=== PATIENT | male | born 1955 | race Caucasian/White ===

== ENCOUNTER 2017-09-09 08:00 | Outpatient (CLI) | payer OTHER ==
[2017-09-09 17:47] LABS: BASOPHILS # (AUTO) 0.1 10^3/uL (0.0-0.1); EOSINOPHILS # (AUTO) 0.2 10^3/uL (0.0-0.7); HGB - HEMOGLOBIN 14.3 g/dL (14.0-18.0); LYMPHOCYTES # (AUTO) 1.2 10^3/uL (1.5-3.5); LYMPHOCYTES % (AUTO) 19.4 %; MEAN CORPUSCULAR HEMOGLOBIN 32.1 pg (27.0-31.0); MEAN CORPUSCULAR HGB CONC 33.4 g/dL (32.0-36.0); MEAN CORPUSCULAR VOLUME 96.2 fL (80.0-94.0); MEAN PLATELET VOLUME 8.6 fL (7.4-11.4); MONOCYTES # (AUTO) 0.6 10^3/uL (0.0-1.0); MONOCYTES % (AUTO) 10.2 %; NEUTROPHILS # (AUTO) 4.1 10^3/uL (1.5-6.6); NEUTROPHILS % (AUTO) 65.4 %; PLT - PLATELET COUNT 238 10^3/uL (130-450); RED BLOOD COUNT 4.46 10^6/uL (4.70-6.10); RED CELL DISTRIBUTION WIDTH 13.3 % (12.0-15.0); WHITE BLOOD COUNT 6.2 x10^3/uL (4.8-10.8)
[2017-09-09 18:40] LABS: ALBUMIN 3.9 g/dL (3.2-5.5); ALBUMIN/GLOBULIN RATIO 1.2 (1.0-2.2); ALKALINE PHOSPHATASE 58 IU/L (42-121); ALT ALANINE AMINOTRANSFERASE 21 IU/L (10-60); AST ASPARTATE AMINOTRANSFERASE 22 IU/L (10-42); BILIRUBIN,TOTAL 0.4 mg/dL (0.2-1.0); BUN - BLOOD UREA NITROGEN 16 mg/dL (6-20); CARBON DIOXIDE - CO2 27 mmol/L (21-32); CHLORIDE 100 mmol/L (101-111); CHOL/HDL RATIO 2.5 (<5.0); CHOLESTEROL 175 mg/dL; CREATININE 0.8 mg/dL (0.6-1.2); GFR - MDRD 99 (>89); GLUCOSE 96 mg/dL (70-100); HDL CHOLESTEROL 69 mg/dL; LDL CHOLESTEROL,CALCULATED 97 mg/dL; LDL/HDL RATIO 1.4 (<3.6); SODIUM 134 mmol/L (135-145); TOTAL PROTEIN 7.2 g/dL (6.7-8.2); VLDL CHOLESTEROL 9 mg/dL
== END 2017-09-09 08:01 | disposition home or self-care (01) ==
LOC: LAB.S 08:00
PROVIDERS: ATTEND Physician Assistant Medical
DX: Z00.00 Encounter for general adult medical examination without abnormal findings (principal); Z12.5 Encounter for screening for malignant neoplasm of prostate
CPT/HCPCS: 36415; 80053; 80061; 84153; 84443; 85025

== ENCOUNTER 2017-10-18 09:32 | Outpatient (CLI) | payer OTHER ==
--- NOTE | 2017-10-18 12:51 | CT Report ---
CT OF CHEST WITHOUT CONTRAST FOR LUNG CANCER SCREENIN10/18/2017 INDICATION: A 62-year-old asymptomatic patient with a [id number] history of smoking, current smoker, for lung cancer screening. TECHNIQUE: Axial CT images of the chest were obtained without contrast, utilizing low dose screening technique. No previous CT is available for comparison. FINDINGS: The heart and great vessels demonstrate minimal atherosclerotic calcification. No hilar or mediastinal lymphadenopathy is present. The lungs demonstrate emphysema. No suspicious pulmonary nodule or mass lesion is seen. Incidental note is made of a tiny calcified granuloma in the posterior right apex. No effusion or pneumothorax is present. Osseous structures demonstrate degenerative changes. Limited evaluation of the upper abdominal structures demonstrates normal adrenal glands. IMPRESSION: EMPHYSEMA. NO SUSPICIOUS PULMONARY NODULE OR MASS LESION. RECOMMENDATION: CONTINUE ANNUAL SCREENING WITH A LOW DOSE CHEST CT IN 12 MONTHS. LUNG RADS CATEGORY 2-BENIGN FINDINGS. In accordance with CT protocol optimization, one or more of the following dose reduction techniques were utilized for this exam: automated exposure control, adjustment of mA and/or KV based on patient size, or use of iterative reconstructive technique. TD: 10/18/2017 12:48
== END 2017-10-18 09:33 | disposition home or self-care (01) ==
LOC: DI 09:32
PROVIDERS: ATTEND Physician Assistant Medical
DX: Z12.2 Encounter for screening for malignant neoplasm of respiratory organs (principal); J43.9 Emphysema, unspecified; F17.210 Nicotine dependence, cigarettes, uncomplicated

== ENCOUNTER 2018-05-28 16:23 | Outpatient (CLI) | payer OTHER ==
--- NOTE | 2018-05-29 10:39 | XRAY Report ---
Reason: DECREASED BS ON RIGHT SIDE Procedure Date: 05/28/2018 Accession Number: [id number] / [id number] Procedure: XR - Chest 2 View X-Ray CPT Code: 46734 FULL RESULT: EXAM: CHEST RADIOGRAPHY EXAM DATE: 05/28/2018 04:39 PM. CLINICAL HISTORY: Decreased breath sounds on right side. COMPARISON: None. TECHNIQUE: 2 views. FINDINGS: Lungs/Pleura: No focal opacities evident. No pleural effusion. No pneumothorax. Normal volumes. Mediastinum: Heart and mediastinal contours are unremarkable. Other: None. IMPRESSION: No acute cardiopulmonary abnormality. RADIA
== END 2018-05-28 16:24 | disposition home or self-care (01) ==
LOC: DI 16:23
PROVIDERS: ATTEND Surgery
DX: J98.8 Other specified respiratory disorders (principal)
CPT/HCPCS: 71046

== ENCOUNTER 2018-11-07 09:32 | Outpatient (CLI) | payer OTHER ==
[2018-11-07 18:08] LABS: BASOPHILS # (AUTO) 0.1 10^3/uL (0.0-0.1); BASOPHILS % (AUTO) 0.9 %; EOSINOPHILS # (AUTO) 0.2 10^3/uL (0.0-0.7); EOSINOPHILS % (AUTO) 3.3 %; LYMPHOCYTES # (AUTO) 1.2 10^3/uL (1.5-3.5); LYMPHOCYTES % (AUTO) 20.6 %; MEAN CORPUSCULAR HEMOGLOBIN 31.1 pg (27.0-31.0); MEAN CORPUSCULAR HGB CONC 33.3 g/dL (32.0-36.0); MEAN CORPUSCULAR VOLUME 93.4 fL (80.0-94.0); MEAN PLATELET VOLUME 8.2 fL (7.4-11.4); MONOCYTES # (AUTO) 0.8 10^3/uL (0.0-1.0); NEUTROPHILS # (AUTO) 3.6 10^3/uL (1.5-6.6); NEUTROPHILS % (AUTO) 62.2 %; PLT - PLATELET COUNT 281 10^3/uL (130-450); RED BLOOD COUNT 4.49 10^6/uL (4.70-6.10); RED CELL DISTRIBUTION WIDTH 13.3 % (12.0-15.0); WHITE BLOOD COUNT 5.8 x10^3/uL (4.8-10.8)
[2018-11-07 18:33] LABS: ALBUMIN/GLOBULIN RATIO 1.1 (1.0-2.2); ALKALINE PHOSPHATASE 61 IU/L (42-121); ALT ALANINE AMINOTRANSFERASE 23 IU/L (10-60); AST ASPARTATE AMINOTRANSFERASE 24 IU/L (10-42); BILIRUBIN,TOTAL 0.8 mg/dL (0.2-1.0); BUN - BLOOD UREA NITROGEN 22 mg/dL (6-20); CARBON DIOXIDE - CO2 23 mmol/L (21-32); CHLORIDE 100 mmol/L (101-111); CHOL/HDL RATIO 2.7 (<5.0); CHOLESTEROL 163 mg/dL; CREATININE 0.9 mg/dL (0.6-1.2); GFR - MDRD 86 (>89); GLUCOSE 92 mg/dL (70-100); HDL CHOLESTEROL 60 mg/dL; LDL CHOLESTEROL,CALCULATED 93 mg/dL; LDL/HDL RATIO 1.6 (<3.6); SODIUM 131 mmol/L (135-145); TOTAL PROTEIN 7.5 g/dL (6.7-8.2); VLDL CHOLESTEROL 10 mg/dL
[2018-11-08 12:51] LABS: HEPATITIS C ANTIBODY NON-REACTIVE (NON-REACTIVE)
== END 2018-11-07 09:33 | disposition home or self-care (01) ==
LOC: LAB.F 09:32
PROVIDERS: ATTEND Physician Assistant Medical
DX: Z00.00 Encounter for general adult medical examination without abnormal findings (principal); E78.5 Hyperlipidemia, unspecified; Z12.5 Encounter for screening for malignant neoplasm of prostate; Z11.59 Encounter for screening for other viral diseases
CPT/HCPCS: 36415; 80053; 80061; 83721; 84153; 84443; 85025; 86803

== ENCOUNTER 2018-12-29 09:58 | Day surgery (SDC) | payer OTHER ==
[2018-12-29] MEDS ORDERED: LACTATED RINGERS 1,000 ML IV ONE (10:26)
[2018-12-29] MEDS ORDERED: MIDAZOLAM 2 MG/2 ML VIAL IVP ONE (10:30)
[2018-12-29] MEDS ORDERED: fentaNYL 250 MCG/5 ML VIAL IVP ONE (10:30)
[2018-12-29] MEDS ORDERED: LIDO GARGLE 30 ML BOTTLE ONE (10:46)
[2018-12-29] MEDS ORDERED: LIDO GARGLE 30 ML BOTTLE TOP ONE (11:24)
[2018-12-29 12:20] VITALS: BP 109/69
== END 2018-12-29 09:59 | disposition home or self-care (01) ==
LOC: SDS 09:58
PROVIDERS: ATTEND Surgery
PROC: 0DB98ZX Excision of Duodenum, Via Natural or Artificial Opening Endoscopic, Diagnostic (ICD-10-PCS; principal; 2018-12-29 11:15)
DX: R49.0 Dysphonia (principal); K21.9 Gastro-esophageal reflux disease without esophagitis; R10.13 Epigastric pain; K20.9 Esophagitis, unspecified; K44.9 Diaphragmatic hernia without obstruction or gangrene; I10 Essential (primary) hypertension; Z79.899 Other long term (current) drug therapy; Z87.891 Personal history of nicotine dependence
CPT/HCPCS: 43239; A9270; J3010; J7120

== ENCOUNTER 2019-04-20 10:09 | Outpatient (CLI) | payer OTHER ==
--- NOTE | 2019-04-20 13:34 | MRI Report ---
Reason: OTHER SPRAIN OF RIGHT SHOULDER JOINT, INITIAL ENCT Procedure Date: 04/20/2019 Accession Number: [id number] / [id number] Procedure: MRI - Shoulder RT W/O CPT Code: FULL RESULT: EXAM: RIGHT SHOULDER MRI WITHOUT CONTRAST EXAM DATE: 04/20/2019 10:41 AM. CLINICAL HISTORY: OTHER SPRAIN OF RIGHT SHOULDER JOINT, INITIAL ENCT. Shoulder pain and limited range of motion. COMPARISON: SHOULDER 2 VIEW RT 01/08/2019 3:00 PM. TECHNIQUE: Multiplanar, multisequence T1-weighted and fluid-sensitive sequences of the shoulder without contrast. Other: None. FINDINGS: Acromioclavicular Region: The acromion is type II. Mild acromioclavicular osteoarthritis. Moderate degenerative osseous changes along the undersurface of the acromion consistent with sequela of chronic subacromial impingement. The coracoacromial and coracoclavicular ligaments are intact. Mild subacromial/subdeltoid bursal fluid consistent with bursitis. Glenohumeral Region: No subluxation. No effusion or loose bodies. The articular cartilage is unremarkable. The glenohumeral ligaments and joint capsule are unremarkable. No significant glenohumeral osteoarthritis. Bone Marrow: No fracture. No bony lesion. Labrum: The labrum is unremarkable on this nonarthrographic study. Musculature/Rotator Cuff: Complete supraspinatus tear with medial retraction of the torn end of the tendon to the apex of the humeral head. No supraspinatus muscle belly atrophy or edema. Moderate infraspinatus tendinosis without focal high-grade tear. No infraspinatus muscle belly atrophy or edema. The teres minor muscle belly and tendon are normal. Tendinosis versus low-grade partial thickness tear along the articular surface of the mid to distal and superior subscapularis. No high-grade subscapularis tear. No subscapularis muscle belly atrophy or edema. Biceps Tendon: Severe tendinosis of the intra-articular portion of the long head biceps tendon. No long head biceps tendon tear. Other: The subcutaneous tissues are unremarkable. IMPRESSION: 1. Complete supraspinatus tear with medial retraction of the torn end of the tendon to the level of the apex of the humeral head. No associated supraspinatus muscle belly atrophy. 2. Tendinosis of the mid to distal infraspinatus without focal tear. 3. Tendinosis versus low-grade partial thickness tear of the mid to distal and superior subscapularis. 4. Severe tendinosis of the intra-articular portion of the long head biceps tendon. No long head biceps tendon tear. 5. Degenerative marrow signal changes along the undersurface of the acromion consistent with sequela of chronic subacromial impingement. RADIA
== END 2019-04-20 10:10 | disposition home or self-care (01) ==
LOC: DI 10:09
PROVIDERS: ATTEND Physician Assistant Medical
DX: S46.011A Strain of muscle(s) and tendon(s) of the rotator cuff of right shoulder, initial encounter (principal); M67.921 Unspecified disorder of synovium and tendon, right upper arm

== ENCOUNTER 2019-05-20 08:00 | Outpatient (CLI) | payer OTHER ==
[2019-05-20 18:30] LABS: BASOPHILS # (AUTO) 0.1 10^3/uL (0.0-0.1); BASOPHILS % (AUTO) 0.8 %; EOSINOPHILS # (AUTO) 0.3 10^3/uL (0.0-0.7); HGB - HEMOGLOBIN 12.7 g/dL (14.0-18.0); LYMPHOCYTES # (AUTO) 1.4 10^3/uL (1.5-3.5); LYMPHOCYTES % (AUTO) 22.7 %; MEAN CORPUSCULAR HEMOGLOBIN 31.1 pg (27.0-31.0); MEAN CORPUSCULAR HGB CONC 32.9 g/dL (32.0-36.0); MEAN CORPUSCULAR VOLUME 94.4 fL (80.0-94.0); MEAN PLATELET VOLUME 10.3 fL (7.4-11.4); MONOCYTES # (AUTO) 0.9 10^3/uL (0.0-1.0); MONOCYTES % (AUTO) 14.3 %; NEUTROPHILS # (AUTO) 3.5 10^3/uL (1.5-6.6); NEUTROPHILS % (AUTO) 56.9 %; PLT - PLATELET COUNT 230 10^3/uL (130-450); RED BLOOD COUNT 4.09 10^6/uL (4.70-6.10); RED CELL DISTRIBUTION WIDTH 13.2 % (12.0-15.0); WHITE BLOOD COUNT 6.2 x10^3/uL (4.8-10.8)
[2019-05-20 18:56] LABS: CALCIUM 9.2 mg/dL (8.5-10.3); CREATININE 1.1 mg/dL (0.6-1.2)
== END 2019-05-20 08:01 | disposition home or self-care (01) ==
LOC: LAB.WCP 08:00
PROVIDERS: ATTEND Physician Assistant Medical
DX: I10 Essential (primary) hypertension (principal)
CPT/HCPCS: 36415; 80048; 85025

== ENCOUNTER 2019-05-27 06:12 | Day surgery (SDC) | payer OTHER ==
[2019-05-27] MEDS ORDERED: ROCURONIUM 50 MG/5 ML VIAL IVP ONE (06:13)
[2019-05-27] MEDS ORDERED: NEOSTIGMINE 0.5 MG/1 ML 10 ML MDV IVP ONE (06:13)
[2019-05-27] MEDS ORDERED: fentaNYL 100 MCG/2 ML VIAL IVP ONE (06:13)
[2019-05-27] MEDS ORDERED: DEXAMETHASONE 4 MG/ML VIAL IVP ONE (06:13)
[2019-05-27] MEDS ORDERED: GLYCOPYRROLATE 1 MG/5 ML VIAL IVP ONE (06:13)
[2019-05-27] MEDS ORDERED: KETOROLAC 30 MG/ML VIAL IVP ONE (06:13)
[2019-05-27] MEDS ORDERED: PROPOFOL 200 MG/20 ML VIAL IVP ONE (06:13)
[2019-05-27] MEDS ORDERED: MIDAZOLAM 2 MG/2 ML VIAL IVP ONE (06:13)
[2019-05-27] MEDS ORDERED: CEFAZOLIN SODIUM IN 0.9 % NACL 2 GM/100 ML BAG IV ONE (06:38)
[2019-05-27] MEDS ORDERED: LACTATED RINGERS 1,000 ML IV ONE ×2 (06:44→10:16)
--- NOTE | 2019-05-27 07:17 | ANESTHESIA ---
Pre-Anesthesia VS, & Labs - Diagnosis right rotator cuff tear, subacromial impingement - Procedure right shoulder arthroscopy, rotator cuff repair, subacromial decompression Vital Signs: Temp Pulse Resp BP Pulse Ox 37.4 C 62 16 144/91 H 99 05/27/19 06:46 05/27/19 06:46 05/27/19 06:46 05/27/19 06:46 05/27/19 06:46 Height 5 ft 11.5 in Weight (kg) 91.6 kg - NPO >8 hours Home Medications and Allergies Home Medications: Ambulatory Orders Omeprazole 20 mg PO DAILY 05/27/19 Atenolol 50 mg PO DAILY 12/29/18 Lisinopril 10 mg PO DAILY 12/29/18 Simvastatin 40 mg PO DAILY 12/29/18 Omeprazole 20 mg PO DAILY 05/27/19 Allergies/Adverse Reactions: Allergies Allergy/AdvReac Type Severity Reaction Status Date / Time No Known Drug Allergies Allergy Verified 12/29/18 10:27 Anes History & Medical History - Anesthetic History Anesthesia Complications: reports: No previous complications - Medical History Cardiovascular: reports: Hypertension, High cholesterol Pulmonary: reports: Emphysema Gastrointestinal: reports: GERD, Hiatal hernia Urinary: reports: None Musculoskeletal: reports: None Endocrine/Autoimmune: reports: None Skin: reports: None - Surgical History General: Colonoscopy Eyes Ears Nose Throat (EENT): Tonsil/Adenoidectomy Exam General: Alert Dental: WNL Mouth Opening: Greater than 4 Fingerbreadths Mallampati classification: II Respiratory: Lungs clear Cardiovascular: Regular rate, Normal S1, Normal S2 Plan Anesthesia Type: General, Supraclavicular Block Consent for Procedure(s) Verified and Reviewed: Yes Code Status: Attempt Resuscitation ASA classification: 2-Mild systemic disease Is this case an emergency?: No
[2019-05-27] MEDS ORDERED: BUPIVACAINE 0.25% PF 10 ML VIAL ONE (07:19)
[2019-05-27] MEDS ORDERED: EPINEPHrine 1 MG/ML AMP ONE (07:19)
[2019-05-27] MEDS ORDERED: BUPIVACAINE 0.25% PF 30 ML VIAL SUBQ ONE ×2 (08:40)
[2019-05-27] MEDS ORDERED: EPINEPHrine 1 MG/ML AMP IR ONE (08:41)
[2019-05-27] MEDS ORDERED: oxyCODONE 5 MG TABLET PO PRN (10:11)
[2019-05-27] MEDS ORDERED: ONDANSETRON 4 MG/2 ML VIAL IVP PRN (10:11)
--- NOTE | 2019-05-27 10:17 | IMMEDIATE POSTOPERATIVE NOTE ---
Immediate Postoperative Note - Procedure Note Procedure Date: 05/27/19 Pre-Op Diagnosis: Right rotator cuff tear subacromial impingement Procedure: Arthroscopic rotator cuff repair and subacromial decompression right Post-Op Diagnosis: Same Raisin Washer: And a Anesthesia Type: General ET tube, Local, Regional block Findings: As above Complications: No complications Estimated Blood Loss (in cc): 50 Plan of Care: Patient tolerated procedure well instrument and sponge counts correct patient transferred to recovery room in stable condition Patient will follow standard right shoulder postoperative protocol rotator cuff repair
--- NOTE | 2019-05-27 11:10 | OPERATIVE REPORT ---
DATE OF SERVICE: 05/27/2019 Physician: Terrell Altman MD PREOPERATIVE DIAGNOSES 1. Right shoulder rotator cuff tear, supraspinatus. 2. Right shoulder subacromial impingement. POSTOPERATIVE DIAGNOSES 1. Right shoulder rotator cuff tear supraspinatus. 2. Right shoulder subacromial impingement. PROCEDURE PERFORMED 1. Right shoulder arthroscopic rotator cuff repair, supraspinatus. 1. Right shoulder arthroscopic subacromial decompression conversion to type 1 acromion. SURGEON: Terrell Altman MD SALON LEADER: None. ANESTHESIA PROVIDERS: Annalee Al CRNA, and Nate Perez CRNA. ANESTHESIA TYPE: Right side ultrasound-guided block of shoulder, as well general endotracheal anesthesia, as well as 15 mL of 0.25% plain Marcaine local. INTRAOPERATIVE COMPLICATIONS: None noted. ESTIMATED BLOOD LOSS: Less than 50 mL FLUIDS: 1000 mL lactated Ringer's. COMPRESSION DEVICE: Bilateral calf SCD boots. PREOPERATIVE ANTIBIOTICS: Weight-based IV Ancef. ORTHOPEDIC IMPLANTS: Arthrex 5.5 BioComposite triple-loaded anchors x2. HISTORY OF PRESENT ILLNESS AND INDICATIONS: The patient is a 64-year-old gentleman found to have a full-thickness rotator cuff tear. He is symptomatic, indicated for operative treatment. Please see previous clinic discussion for risks, benefits, and alternatives of operative and nonoperative treatment that were reviewed. These were again highlighted with the patient and the patient's in the preoperative care unit. Their questions were answered. Patient verbalized understanding of the above and verbalized wish to proceed with operative treatment. Informed consent was given. PROCEDURE: On 05/27/2019, patient is identified in the preoperative care unit. He identifies his right shoulder as the operative site; this is signed by the operating surgeon on the right shoulder. Patient is brought to the operating room, initially placed supine, general anesthesia is administered, and then he is placed left side down, lateral decubitus position with appropriately placed axillary roll to avoid encumbrance of the axilla. Head, neck, and extremities are placed in comfortable positions to avoid peripheral nerve stretch and compression. Down leg is gel padded. Beanbag positioner is used. Patient's right upper extremity is first pre-scrubbed with Hibiclens solution, then alcohol, and then prepped and draped in the usual sterile fashion using ChloraPrep. A combination of 10 or 15 pounds of traction is used during the case in the right upper extremity arm kearney. At this time, surgical pause identifies the right shoulder as the operative site. Local anesthetic infused posteriorly, anteriorly, and laterally, and a small incision made posteriorly. Scope is introduced into the glenohumeral joint. Diagnostic arthroscopy is carried out. There is noted to be some chondromalacia grade 1-2, minimal fraying of the labrum, biceps okay, and a full-thickness supraspinatus tear of the rotator cuff, okay. At this point, attention is directed to the subacromial space, where the camera is redirected. A lateral incision is made. Shaver is brought through the lateral incision. Subacromial decompression, debriding fibrotic scar tissue and bursal tissue is performed. The coracoacromial ligament is elevated, and then a bur is used to convert to type 1 acromion with the acromioplasty. At this point, hemostasis is achieved using electrocautery with appropriate flow, and at this point, the edge of the rotator cuff is debrided sharply using a meniscal basket. The footprint is debrided using a shaver and a bur to freshly bleeding bone but leaving good integrity of the cortex. At this point, copious irrigation is performed, and then, through an anterolateral auxiliary incision, sequential anchors are placed, 1 anterior and 1 posterior in the rotator cuff footprint, followed by placement of 5 simple sutures and the posterior-most horizontal mattress suture and tied in reverse order, thereby re-apposing the rotator cuff to the footprint, and this is tested and noted to be stable. Suture limbs are cut. The rotator cuff is examined and noted to be well apposed to its near-anatomic footprint and no indication for further procedure. Subacromial space is copiously irrigated and hemostasis achieved. Instruments are removed. Incisions are closed with interrupted nylon suture. Local anesthetic is infused around the remaining incisions, and then skin is washed, dried, Xeroform dressing applied, dry sterile dressing is applied, and then micropore tape and ABD pad applied. Patient is placed in abduction pillow sling. Patient tolerated the procedure well. Instrument and sponge counts are correct. Patient is transferred to recovery room in stable condition; will follow standard right shoulder rotator cuff protocol. Patient's is found in the waiting room, case is discussed, arthroscopic photos reviewed. Case is explained, questions are answered. Perioperative medication plan reviewed; they deny any contraindications to this. Protocol for rotator cuff repair and precautions highlighted. She verbalizes understanding and satisfaction with plan and will follow up in 10-14 days, or sooner should problems or questions arise. TD: 05/27/2019 10:29 SONJA
[2019-05-27 11:11] VITALS: BP 128/84
== END 2019-05-27 06:13 | disposition home or self-care (01) ==
LOC: SDS 06:12
PROVIDERS: ATTEND Orthopaedic Surgery Sports Medicine
PROC: 0RNJ4ZZ Release Right Shoulder Joint, Percutaneous Endoscopic Approach (ICD-10-PCS; 2019-05-27)
PROC: 0LQ14ZZ Repair Right Shoulder Tendon, Percutaneous Endoscopic Approach (ICD-10-PCS; principal; 2019-05-27 07:30)
DX: S43.421A Sprain of right rotator cuff capsule, initial encounter (principal); M75.41 Impingement syndrome of right shoulder; I10 Essential (primary) hypertension; E78.00 Pure hypercholesterolemia, unspecified; J43.9 Emphysema, unspecified; K21.9 Gastro-esophageal reflux disease without esophagitis; K44.9 Diaphragmatic hernia without obstruction or gangrene; W17.89XA Other fall from one level to another, initial encounter; Y93.89 Activity, other specified; Y92.62 Dock or shipyard as the place of occurrence of the external cause; Y99.0 Civilian activity done for income or pay
CPT/HCPCS: 29826; 29827; A9270; C1713; J0690; J7120

== ENCOUNTER 2019-06-18 13:54 | Outpatient (CLI) | payer OTHER ==
[2019-06-18 18:42] LABS: BASOPHILS % (AUTO) 0.7 %; EOSINOPHILS # (AUTO) 0.3 10^3/uL (0.0-0.7); EOSINOPHILS % (AUTO) 4.8 %; HGB - HEMOGLOBIN 13.5 g/dL (14.0-18.0); LYMPHOCYTES # (AUTO) 1.3 10^3/uL (1.5-3.5); LYMPHOCYTES % (AUTO) 21.6 %; MEAN CORPUSCULAR HEMOGLOBIN 31.3 pg (27.0-31.0); MEAN CORPUSCULAR HGB CONC 32.9 g/dL (32.0-36.0); MEAN CORPUSCULAR VOLUME 94.9 fL (80.0-94.0); MONOCYTES # (AUTO) 0.9 10^3/uL (0.0-1.0); MONOCYTES % (AUTO) 14.9 %; NEUTROPHILS # (AUTO) 3.3 10^3/uL (1.5-6.6); NEUTROPHILS % (AUTO) 57.3 %; PLT - PLATELET COUNT 281 10^3/uL (130-450); RED BLOOD COUNT 4.32 10^6/uL (4.70-6.10); RED CELL DISTRIBUTION WIDTH 12.6 % (12.0-15.0); WHITE BLOOD COUNT 5.8 x10^3/uL (4.8-10.8)
[2019-06-18 18:55] LABS: % IRON SATURATION 34 % (20-50); IRON 109 ug/dL (45-182); TOTAL IRON BINDING CAPACITY 321 ug/dL (250-450); TRANSFERRIN 229 mg/dL (180-329)
[2019-06-18 19:06] LABS: FERRITIN 253.4 ng/mL (23.9-336.2)
[2019-06-18 19:10] LABS: FOLATE 12.23 ng/mL (5.90 - >24.8)
== END 2019-06-18 23:59 | disposition home or self-care (01) ==
LOC: LAB.WCP 13:54
PROVIDERS: ATTEND Physician Assistant Medical
DX: D64.9 Anemia, unspecified (principal)
CPT/HCPCS: 36415; 82607; 82728; 82746; 83540; 84466; 85025

== ENCOUNTER 2020-02-15 08:24 | Outpatient (CLI) | payer OTHER ==
[2020-02-15 15:35] LABS: BASOPHILS # (AUTO) 0.1 10^3/uL (0.0-0.1); BASOPHILS % (AUTO) 0.8 %; EOSINOPHILS # (AUTO) 0.2 10^3/uL (0.0-0.7); EOSINOPHILS % (AUTO) 3.2 %; HGB - HEMOGLOBIN 13.8 g/dL (14.0-18.0); LYMPHOCYTES # (AUTO) 1.5 10^3/uL (1.5-3.5); LYMPHOCYTES % (AUTO) 23.7 %; MEAN CORPUSCULAR HEMOGLOBIN 30.6 pg (27.0-31.0); MEAN CORPUSCULAR VOLUME 95.6 fL (80.0-94.0); MEAN PLATELET VOLUME 10.3 fL (7.4-11.4); MONOCYTES # (AUTO) 0.7 10^3/uL (0.0-1.0); MONOCYTES % (AUTO) 10.5 %; NEUTROPHILS # (AUTO) 3.9 10^3/uL (1.5-6.6); NEUTROPHILS % (AUTO) 61.5 %; PLT - PLATELET COUNT 267 10^3/uL (130-450); RED BLOOD COUNT 4.51 10^6/uL (4.70-6.10); RED CELL DISTRIBUTION WIDTH 12.8 % (12.0-15.0); WHITE BLOOD COUNT 6.3 x10^3/uL (4.8-10.8)
[2020-02-15 16:12] LABS: ALBUMIN 4.2 g/dL (3.2-5.5); ALBUMIN/GLOBULIN RATIO 1.3 (1.0-2.2); ALKALINE PHOSPHATASE 64 IU/L (42-121); ALT ALANINE AMINOTRANSFERASE 32 IU/L (10-60); AST ASPARTATE AMINOTRANSFERASE 23 IU/L (10-42); BILIRUBIN,TOTAL 0.5 mg/dL (0.2-1.0); BUN - BLOOD UREA NITROGEN 21 mg/dL (6-20); CALCIUM 9.4 mg/dL (8.5-10.3); CARBON DIOXIDE - CO2 27 mmol/L (21-32); CHLORIDE 101 mmol/L (101-111); CHOL/HDL RATIO 3.5 (<5.0); CHOLESTEROL 213 mg/dL; GLUCOSE 107 mg/dL (70-100); HDL CHOLESTEROL 61 mg/dL; LDL CHOLESTEROL,CALCULATED 133 mg/dL; LDL/HDL RATIO 2.2 (<3.6); SODIUM 137 mmol/L (135-145); TOTAL PROTEIN 7.5 g/dL (6.7-8.2); VLDL CHOLESTEROL 19 mg/dL
== END 2020-02-15 08:25 | disposition home or self-care (01) ==
LOC: LAB.S 08:24
PROVIDERS: ATTEND Physician Assistant Medical
DX: Z00.00 Encounter for general adult medical examination without abnormal findings (principal); E78.5 Hyperlipidemia, unspecified; Z12.5 Encounter for screening for malignant neoplasm of prostate; D64.9 Anemia, unspecified
CPT/HCPCS: 36415; 80053; 80061; 83721; 84153; 84443; 85025

== ENCOUNTER 2020-07-18 08:50 | Outpatient (CLI) | payer OTHER | END 2020-07-18 08:51 | disposition home or self-care (01) | LOC: COV 08:50 | PROVIDERS: ATTEND Family Medicine | DX: R50.9 Fever, unspecified (principal); R05 Cough; M79.10 Myalgia, unspecified site; R53.83 Other fatigue; J02.9 Acute pharyngitis, unspecified; R11.2 Nausea with vomiting, unspecified; Z20.828 Contact with and (suspected) exposure to other viral communicable diseases ==

== ENCOUNTER 2021-06-02 10:11 | Outpatient (CLI) | payer OTHER ==
[2021-06-02 18:08] LABS: BASOPHILS % (AUTO) 0.9 %; EOSINOPHILS # (AUTO) 0.2 10^3/uL (0.0-0.7); EOSINOPHILS % (AUTO) 3.9 %; HCT - HEMATOCRIT 42.7 % (42.0-52.0); HGB - HEMOGLOBIN 13.7 g/dL (14.0-18.0); LYMPHOCYTES # (AUTO) 1.3 10^3/uL (1.5-3.5); LYMPHOCYTES % (AUTO) 26.9 %; MEAN CORPUSCULAR HEMOGLOBIN 31.5 pg (27.0-31.0); MEAN CORPUSCULAR HGB CONC 32.1 g/dL (32.0-36.0); MEAN CORPUSCULAR VOLUME 98.2 fL (80.0-94.0); MEAN PLATELET VOLUME 10.4 fL (7.4-11.4); MONOCYTES # (AUTO) 0.6 10^3/uL (0.0-1.0); NEUTROPHILS # (AUTO) 2.6 10^3/uL (1.5-6.6); NEUTROPHILS % (AUTO) 55.9 %; PLT - PLATELET COUNT 238 10^3/uL (130-450); RED BLOOD COUNT 4.35 10^6/uL (4.70-6.10); RED CELL DISTRIBUTION WIDTH 12.9 % (12.0-15.0); WHITE BLOOD COUNT 4.7 x10^3/uL (4.8-10.8)
[2021-06-02 18:54] LABS: THYROID STIMULATING HORMONE 2.05 uIU/mL (0.34-5.60)
[2021-06-02 19:00] LABS: ALBUMIN 4.3 g/dL (3.2-5.5); ALBUMIN/GLOBULIN RATIO 1.3 (1.0-2.2); ALKALINE PHOSPHATASE 57 IU/L (42-121); ALT ALANINE AMINOTRANSFERASE 33 IU/L (10-60); AST ASPARTATE AMINOTRANSFERASE 26 IU/L (10-42); BILIRUBIN,TOTAL 0.7 mg/dL (0.2-1.0); BUN - BLOOD UREA NITROGEN 24 mg/dL (6-20); CALCIUM 9.6 mg/dL (8.5-10.3); CARBON DIOXIDE - CO2 28 mmol/L (21-32); CHLORIDE 101 mmol/L (101-111); CHOL/HDL RATIO 3.1 (<5.0); CHOLESTEROL 219 mg/dL; CREATININE 1.3 mg/dL (0.6-1.2); GFR - MDRD 56 (>89); GLUCOSE 98 mg/dL (70-100); HDL CHOLESTEROL 70 mg/dL; LDL CHOLESTEROL,CALCULATED 133 mg/dL; LDL/HDL RATIO 1.9 (<3.6); SODIUM 138 mmol/L (135-145); TOTAL PROTEIN 7.6 g/dL (6.7-8.2); TRIGLYCERIDES 78 mg/dL; VLDL CHOLESTEROL 16 mg/dL
== END 2021-06-02 23:59 | disposition home or self-care (01) ==
LOC: LAB.WCP 10:11
PROVIDERS: ATTEND Physician Assistant Medical
DX: Z00.00 Encounter for general adult medical examination without abnormal findings (principal); E78.5 Hyperlipidemia, unspecified; Z12.5 Encounter for screening for malignant neoplasm of prostate; K21.9 Gastro-esophageal reflux disease without esophagitis
CPT/HCPCS: 36415; 80053; 80061; 83721; 84153; 84443; 85025

== ENCOUNTER 2021-08-05 14:09 | Outpatient (CLI) | payer OTHER ==
[2021-08-05 18:26] LABS: CALCIUM 9.3 mg/dL (8.5-10.3); CREATININE 1.3 mg/dL (0.6-1.2)
== END 2021-08-05 14:10 | disposition home or self-care (01) ==
LOC: LAB.S 14:09
PROVIDERS: ATTEND Physician Assistant Medical
DX: Z00.00 Encounter for general adult medical examination without abnormal findings (principal); E78.5 Hyperlipidemia, unspecified; Z12.5 Encounter for screening for malignant neoplasm of prostate; D64.9 Anemia, unspecified; N18.9 Chronic kidney disease, unspecified
CPT/HCPCS: 36415; 80048

== ENCOUNTER 2021-09-11 11:10 | Emergency (ER) | payer OTHER ==
[2021-09-11 11:32] LABS: BASOPHILS % (AUTO) 0.5 %; EOSINOPHILS # (AUTO) 0.2 10^3/uL (0.0-0.7); EOSINOPHILS % (AUTO) 1.9 %; HCT - HEMATOCRIT 42.5 % (42.0-52.0); HGB - HEMOGLOBIN 14.4 g/dL (14.0-18.0); LYMPHOCYTES # (AUTO) 1.6 10^3/uL (1.5-3.5); LYMPHOCYTES % (AUTO) 18.4 %; MEAN CORPUSCULAR HEMOGLOBIN 31.9 pg (27.0-31.0); MEAN CORPUSCULAR HGB CONC 33.9 g/dL (32.0-36.0); MEAN CORPUSCULAR VOLUME 94.2 fL (80.0-94.0); MEAN PLATELET VOLUME 9.4 fL (7.4-11.4); MONOCYTES # (AUTO) 1.3 10^3/uL (0.0-1.0); MONOCYTES % (AUTO) 15.2 %; NEUTROPHILS # (AUTO) 5.5 10^3/uL (1.5-6.6); NEUTROPHILS % (AUTO) 63.5 %; PLT - PLATELET COUNT 240 10^3/uL (130-450); RED BLOOD COUNT 4.51 10^6/uL (4.70-6.10); RED CELL DISTRIBUTION WIDTH 12.6 % (12.0-15.0); WHITE BLOOD COUNT 8.6 x10^3/uL (4.8-10.8)
--- NOTE | 2021-09-11 11:44 | ED Physician Documentation ---
PD HPI CHEST PAIN - Stated complaint Stated Complaint: CHEST PX - Chief complaint Chief Complaint: Cardiac - History obtained from History obtained from: Patient - History of Present Illness Timing - onset: Yesterday (299) Timing - onset during: Rest Timing - duration: Days (1) Timing - details: Abrupt onset, Still present Quality: Sharp, Pain Location: Substernal, Right chest Improved by: Rest Worsened by: Inspiration Associated symptoms: No: Shortness of air, Diaphoresis, Nausea, Vomiting, Feeling faint / dizzy, General Weakness, Palpitations, Cough Similar symptoms before: Has not had sx before Recently seen: Clinic - Additional information Additional information: 66-year-old male reports that he woke up about 3:00 in the morning had a sharp cramping pain in his right leg and following that he developed some pain in his right chest. He states that the pain is worse with inspiration and has persi sted this morning so he went into the urgent care and was directed to the emergency department. He states that he has had surgery to his right hand for a Dupuytren's contracture about 5 days ago. He had no problems with that. He periodically will have cramps in his legs and does not have pain in his legs now. He has no swelling in his legs. He denies any shortness of breath associated with this incident. Review of Systems Constitutional: denies: Fever Eyes: denies: Decreased vision Ears: denies: Ear pain Nose: denies: Congestion Throat: denies: Sore throat Cardiac: reports: Chest pain / pressure, Calf pain. denies: Palpitations, Pedal edema Respiratory: denies: Dyspnea, Cough, Wheezing GI: denies: Abdominal Pain, Nausea, Vomiting, Constipation, Diarrhea : denies: Dysuria, Frequency PD PAST MEDICAL HISTORY - Past Medical History Cardiovascular: Hypertension, High cholesterol Respiratory: Emphysema Endocrine/Autoimmune: None GI: GERD, Hiatal hernia : None HEENT: Chronic vision loss Musculoskeletal: None Derm: None - Past Surgical History General: Colonoscopy HEENT: Tonsil/Adenoidectomy - Present Medications Home Medications: Ambulatory Orders Medication Instructions Recorded Confirmed Simvastatin 40 mg PO DAILY 12/29/18 05/27/19 atenoloL [Atenolol] 50 mg PO DAILY 12/29/18 05/27/19 lisinopriL [Lisinopril] 10 mg PO DAILY 12/29/18 05/27/19 Omeprazole 20 mg PO DAILY 05/27/19 05/27/19 - Allergies Allergies/Adverse Reactions: Allergies Allergy/AdvReac Type Severity Reaction Status Date / Time No Known Drug Allergies Allergy Verified 09/11/21 11:18 PD ED PE NORMAL - Vitals Vital signs reviewed: Yes (Hypertensive) - General General: Alert and oriented X 3, No acute distress, Well developed/nourished - HEENT HEENT: Atraumatic, PERRL, EOMI - Neck Neck: Supple, no meningeal sign, No bony TTP - Cardiac Cardiac: RRR, No murmur - Respiratory Respiratory: No respiratory distress, Clear bilaterally - Abdomen Abdomen: Normal bowel sounds, Soft, Non tender, Non distended, No organomegaly - Back Back: No CVA TTP, No spinal TTP - Derm Derm: Normal color, Warm and dry, No rash - Extremities Extremities: No deformity, No edema - Neuro Neuro: Alert and oriented X 3, billet driller 2-12 intact, No motor deficit, No sensory deficit, Normal speech Eye Opening: Spontaneous Motor: Obeys Commands Verbal: Oriented GCS Score: 15 - Psych Psych: Normal mood, Normal affect Results - Vitals Vitals: Vital Signs - 24 hr 09/11/21 09/11/21 09/11/21 11:18 12:17 14:06 Temperature 36.9 C Heart Rate 90 84 68 Respiratory 24 19 16 Rate Blood Pressure 165/90 H 107/65 110/68 O2 Saturation 99 100 100 Oxygen O2 Source Room air - EKG (time done) 1116 Rate: Rate (enter#) (78) Rhythm: NSR Intervals: RBBB (incomplete) Ischemia: ST elevation c/w ischemia (borderline (<.06mV)) Compare to prior EKG: Old EKG unavailable Computer interpretation: Agree with computer - Labs Labs: Laboratory Tests 09/11/21 09/11/21 09/11/21 11:26 11:26 11:26 WBC 8.6 RBC 4.51 L Hgb 14.4 Hct 42.5 MCV 94.2 H MCH 31.9 H MCHC 33.9 RDW 12.6 Plt Count 240 MPV 9.4 Neut # (Auto) 5.5 Lymph # (Auto) 1.6 [place] # (Auto) 1.3 H Eos # (Auto) 0.2 Baso # (Auto) 0.0 Absolute Nucleated RBC 0.00 Nucleated RBC % 0.0 Sodium 134 L Potassium 4.1 Chloride 95 L Carbon Dioxide 27 Anion Gap 12.0 BUN 21 H Creatinine 1.0 Estimated GFR (MDRD) 75 L Glucose 102 H Calcium 9.5 Total Bilirubin 0.8 AST 20 ALT 28 Alkaline Phosphatase 68 Troponin I High Sens 7.1 Total Protein 8.2 Albumin 4.0 Globulin 4.2 Albumin/Globulin Ratio 1.0 Lipase 31 - Rads (name of study) CTA chest Radiology: Prelim report reviewed (Impression: 1. No pulmonary embolus. No lung consolidation or pleural effusions.), EMP read indepedently, See rad report chest 1 v Radiology: Prelim report reviewed (Impression: 1. No acute cardiopulmonary abnormality.), EMP read indepedently, See rad report PD MEDICAL DECISION MAKING - ED course Complexity details: reviewed old records, reviewed results, re-evaluated patient, considered differential, d/w patient ED course: 66-year-old male with acute pleuritic chest pain after a sharp pain in his calf does not have it evidence of PE on CTA of the chest. We did not have other reasons for the patient's pleuritic chest pain discovered on today's evaluation. His symptoms resolved while he was here in the emergency department. Departure - Departure Disposition: 01 Home, Self Care Clinical Impression: Atypical chest pain Condition: Stable Instructions: ED Chest Pain Atypical Unkn Cause Follow-Up: Tammi Fields PA-C [Primary Care Provider] - Comments: Patrick, today we did not find a specific reason for the pleuritic chest pain you were having. There is no evidence of a collapsed lung, pneumonia or pulmonary embolism. There is no evidence of heart attack or vessel rupture/dissection. The expectation is recovery without symptoms. Discharge Date/Time: 09/11/21 14:08
--- NOTE | 2021-09-11 11:48 | XRAY Report ---
PROCEDURE: Chest 1 View X-Ray INDICATIONS: Chest pain TECHNIQUE: One view of the chest was acquired. COMPARISON: May 28, 2018 FINDINGS: SUPPORT DEVICES: None. LUNGS/PLEURA: No focal consolidation, pleural effusion or space-occupying pneumothorax. MEDIASTINUM: The cardiomediastinal silhouette is within normal limits. BONES/SOFT TISSUES: No acute abnormality. IMPRESSION: 1.No acute cardiopulmonary abnormality. Reviewed by: Bill Gutierrez MD on 09/11/2021 11:47 AM [facility] Approved by: Bill Gutierrez MD on 09/11/2021 11:47 AM [facility] Station ID: [id number]
[2021-09-11 11:49] LABS: BILIRUBIN,TOTAL 0.8 mg/dL (0.2-1.0); CALCIUM 9.5 mg/dL (8.5-10.3); POTASSIUM 4.1 mmol/L (3.5-5.0); TOTAL PROTEIN 8.2 g/dL (6.7-8.2)
[2021-09-11] MEDS ORDERED: iohexoL-300 100 ML VIAL ONE (12:57)
[2021-09-11] MEDS ORDERED: iohexoL-300 100 ML VIAL IVP ONE (13:17)
--- NOTE | 2021-09-11 13:24 | CT Report ---
PROCEDURE: ANGIO CHEST W/WO INDICATIONS: pleuritic chest pain CONTRAST: IV CONTRAST: Optiray 320 ml: 80 PO CONTRAST: *NO PO CONTRAST TECHNIQUE: After the administration of intravenous contrast, 2 mm axial images were acquired from the pulmonary apices to the posterior costophrenic angles during the arterial phase. In addition, 1 mm lung kernel and 5 mm soft tissue kernel reconstructions were performed. 3-dimensional coronal oblique maximum int ensity projection (MIP) reformats, 8 mm axial MIP, and 5 mm coronal and sagittal MPR reformats were t hen performed through the thorax. For radiation dose reduction, the following was used: automated exp osure control, adjustment of mA and/or kV according to patient size. COMPARISON: CT chest 10/18/2017. FINDINGS: Image quality: Excellent. Pulmonary arteries: Pulmonary arteries are normal in size, and demonstrate no intraluminal filling d efects to suggest central pulmonary embolism. Lungs and pleura: Lungs are clear. No pleural effusions or pneumothorax. Central and peripheral ai rways are patent. Mediastinum: Heart size is normal, without pericardial effusion. Atherosclerotic calcifications note d in the aorta, great vessels and coronary vasculature. No mediastinal or hilar adenopathy. Thoraci c aorta is normal in caliber and enhancement. Esophagus is normal in caliber, without hiatal hernia. Bones and chest wall: No suspicious bony lesions. Ribs and thoracic spine appear intact throughout. Spine degenerative disc disease and facet arthropathy are noted. No axillary or supraclavicular codie nopathy. The thyroid is normal in size and there are no incidental findings. Abdomen: Visualized upper abdominal solid organs appear normal in the early arterial phase of enhanc ement. IMPRESSION: 1. No pulmonary embolus. 2. No lung consolidation or pleural effusions. Reviewed by: Radha Canela MD, PhD on 09/11/2021 12:23 PM [facility] Approved by: Radha Canela MD, PhD on 09/11/2021 12:23 PM [facility] Station ID: [id number]
[2021-09-11 14:07] VITALS: BP 110/68
== END 2021-09-11 14:08 | disposition home or self-care (01) ==
LOC: ED 11:10
DX: R07.89 Other chest pain (principal); I10 Essential (primary) hypertension
CPT/HCPCS: 36415; 71045; 71275; 80053; 83690; 84484; 85025; 93005; 99284; Q9967

== ENCOUNTER 2021-11-12 08:00 | Outpatient (CLI) | payer OTHER | END 2021-11-12 23:59 | disposition home or self-care (01) | LOC: LAB.R 08:00 | PROVIDERS: ATTEND Emergency Medicine | DX: L72.3 Sebaceous cyst (principal) | CPT/HCPCS: 87070; 87205 ==

== ENCOUNTER 2021-12-18 06:28 | Day surgery (SDC) | payer OTHER ==
[2021-12-18] MEDS ORDERED: LACTATED RINGERS 1,000 ML IV ONE (06:33)
--- NOTE | 2021-12-18 07:06 | ANESTHESIA ---
Pre-Anesthesia VS, & Labs - Diagnosis hx of lee's, screening - Procedure EGD, Colonoscopy Vital Signs: Temp Pulse Resp BP Pulse Ox 36.1 C L 79 14 134/87 H 99 12/18/21 06:33 12/18/21 06:33 12/18/21 06:33 12/18/21 06:33 12/18/21 06:33 Height: 5 ft 11 in Weight (kg): 97.8 kg Body Mass Index: 30.0 BMI Classification: Obese - NPO >8 hours - Lab Results Lab results reviewed: Yes Home Medications and Allergies Simvastatin 40 mg PO DAILY 12/29/18 atenoloL [Atenolol] 50 mg PO DAILY 12/29/18 lisinopriL [Lisinopril] 10 mg PO DAILY 12/29/18 Omeprazole 20 mg PO DAILY 05/27/19 Allergies/Adverse Reactions: Allergies Allergy/AdvReac Type Severity Reaction Status Date / Time No Known Drug Allergies Allergy Verified 09/11/21 11:18 Anes History & Medical History - Anesthetic History Anesthesia Complications: reports: No previous complications Family history of Anesthesia Complications: Denies Family history of Malignant Hyperthermia: Denies - Medical History Cardiovascular: reports: Hypertension, High cholesterol Pulmonary: reports: Emphysema (was told about it 4 years ago when he quit smoking) Gastrointestinal: reports: GERD, Hiatal hernia Urinary: reports: None Musculoskeletal: reports: None Endocrine/Autoimmune: reports: None Skin: reports: None Smoking Status: Never smoker - Surgical History General: reports: Colonoscopy Eyes Ears Nose Throat (EENT): reports: Tonsil/Adenoidectomy Orthopedic: reports: Rotator cuff repair Exam General: Alert, Oriented x3, Cooperative, No acute distress Dental: WNL Mouth Openin Fingerbreadth Neck Mobility: Normal Mallampati classification: II Respiratory: Lungs clear, Normal breath sounds, No respiratory distress, No accessory muscle use Cardiovascular: Regular rate, Normal S1, Normal S2, No murmurs Plan Anesthesia Type: General Consent for Procedure(s) Verified and Reviewed: Yes Code Status: Attempt Resuscitation ASA classification: 2-Mild systemic disease Is this case an emergency?: No
[2021-12-18] MEDS ORDERED: PROPOFOL 500 MG/50 ML 500 MG/50 ML VIAL ONE ×2 (07:32→08:32)
[2021-12-18] MEDS ORDERED: LACTATED RINGERS 300 ML IV ONE (08:54)
[2021-12-18 09:24] VITALS: BP 99/65
--- NOTE | 2021-12-18 13:44 | ANESTHESIA POST OP EVALUATION ---
Anesthesia Post Eval - Post Anesthesia Eval Vitals: Last Vital Signs Temp 36.2 C L 12/18/21 09:11 Pulse 76 12/18/21 09:11 Resp 16 12/18/21 09:11 BP 99/65 12/18/21 09:11 Pulse Ox 97 12/18/21 09:11 CV Function Including HR & BP: Stable Pain Control: Satisfactory Nausea & Vomiting: Negative Mental Status: Baseline Respiratory Status: Airway Patent Hydration Status: Satisfactory Anesthesia Complications: None
== END 2021-12-18 06:29 | disposition home or self-care (01) ==
LOC: SDS 06:28
PROVIDERS: ATTEND Surgery
PROC: 0DB58ZX Excision of Esophagus, Via Natural or Artificial Opening Endoscopic, Diagnostic (ICD-10-PCS; 2021-12-18)
PROC: 0DBK8ZX Excision of Ascending Colon, Via Natural or Artificial Opening Endoscopic, Diagnostic (ICD-10-PCS; 2021-12-18)
PROC: 0DBL8ZX Excision of Transverse Colon, Via Natural or Artificial Opening Endoscopic, Diagnostic (ICD-10-PCS; 2021-12-18)
PROC: 0DB98ZX Excision of Duodenum, Via Natural or Artificial Opening Endoscopic, Diagnostic (ICD-10-PCS; principal; 2021-12-18 07:30)
PROC: 0DB68ZX Excision of Stomach, Via Natural or Artificial Opening Endoscopic, Diagnostic (ICD-10-PCS; 2021-12-18 07:30)
DX: Z12.11 Encounter for screening for malignant neoplasm of colon (principal); K21.9 Gastro-esophageal reflux disease without esophagitis; K22.70 Barrett's esophagus without dysplasia; K29.70 Gastritis, unspecified, without bleeding; K44.9 Diaphragmatic hernia without obstruction or gangrene; K57.30 Diverticulosis of large intestine without perforation or abscess without bleeding; K64.8 Other hemorrhoids; D12.2 Benign neoplasm of ascending colon; D12.3 Benign neoplasm of transverse colon; J43.9 Emphysema, unspecified; I10 Essential (primary) hypertension; E66.9 Obesity, unspecified; E78.00 Pure hypercholesterolemia, unspecified; Z68.30 Body mass index [BMI] 30.0-30.9, adult; Z80.0 Family history of malignant neoplasm of digestive organs
CPT/HCPCS: 43239; 45380; 45385; J7120

== ENCOUNTER 2022-06-11 09:43 | Outpatient (CLI) | payer MEDICARE ==
[2022-06-11 09:57] LABS: BASOPHILS # (AUTO) 0.1 10^3/uL (0.0-0.1); BASOPHILS % (AUTO) 0.9 %; EOSINOPHILS # (AUTO) 0.2 10^3/uL (0.0-0.7); EOSINOPHILS % (AUTO) 3.8 %; HCT - HEMATOCRIT 41.1 % (42.0-52.0); HGB - HEMOGLOBIN 13.7 g/dL (14.0-18.0); LYMPHOCYTES # (AUTO) 1.1 10^3/uL (1.5-3.5); LYMPHOCYTES % (AUTO) 20.6 %; MEAN CORPUSCULAR HEMOGLOBIN 31.4 pg (27.0-31.0); MEAN CORPUSCULAR HGB CONC 33.3 g/dL (32.0-36.0); MEAN CORPUSCULAR VOLUME 94.3 fL (80.0-94.0); MONOCYTES # (AUTO) 0.6 10^3/uL (0.0-1.0); MONOCYTES % (AUTO) 11.2 %; NEUTROPHILS # (AUTO) 3.3 10^3/uL (1.5-6.6); NEUTROPHILS % (AUTO) 62.9 %; PLT - PLATELET COUNT 227 10^3/uL (130-450); RED BLOOD COUNT 4.36 10^6/uL (4.70-6.10); RED CELL DISTRIBUTION WIDTH 12.7 % (12.0-15.0); WHITE BLOOD COUNT 5.3 x10^3/uL (4.8-10.8)
[2022-06-11 10:17] LABS: ALBUMIN 4.4 g/dL (3.2-5.5); ALBUMIN/GLOBULIN RATIO 1.4 (1.0-2.2); ALKALINE PHOSPHATASE 62 IU/L (42-121); ALT ALANINE AMINOTRANSFERASE 46 IU/L (10-60); AST ASPARTATE AMINOTRANSFERASE 34 IU/L (10-42); BILIRUBIN,TOTAL 0.4 mg/dL (0.2-1.0); BUN - BLOOD UREA NITROGEN 24 mg/dL (6-20); CALCIUM 9.9 mg/dL (8.5-10.3); CARBON DIOXIDE - CO2 26 mmol/L (21-32); CHLORIDE 100 mmol/L (101-111); CHOLESTEROL 213 mg/dL; CREATININE 1.1 mg/dL (0.6-1.2); GFR - MDRD 67 (>89); GLUCOSE 106 mg/dL (70-100); HDL CHOLESTEROL 70 mg/dL; LDL CHOLESTEROL,CALCULATED 114 mg/dL; LDL/HDL RATIO 1.6 (<3.6); SODIUM 134 mmol/L (135-145); TOTAL PROTEIN 7.6 g/dL (6.7-8.2); TRIGLYCERIDES 144 mg/dL; VLDL CHOLESTEROL 29 mg/dL
== END 2022-06-11 09:44 | disposition home or self-care (01) ==
LOC: LAB 09:43
PROVIDERS: ATTEND Physician Assistant Medical
DX: E78.5 Hyperlipidemia, unspecified (principal); Z12.5 Encounter for screening for malignant neoplasm of prostate; D64.9 Anemia, unspecified
CPT/HCPCS: 36415; 80053; 80061; 85025; G0103; 83721; 84153

== ENCOUNTER 2022-08-10 08:42 | Outpatient (CLI) | payer MEDICARE ==
--- NOTE | 2022-08-10 13:17 | Ultrasound Report ---
PROCEDURE: Aorta Screening INDICATIONS: FORMER SMOKER TECHNIQUE: Real time scanning was performed of the aorta and iliac arteries, with image documentatio n. COMPARISON: CT angiogram of chest dated 09/11/2021 FINDINGS: Aorta: Proximal aortic diameter measures 2.08 x 1.79 cm. Mid-aorta measures 2.06 x 2.14 cm. Distal aortic diameter is 1.97 x 2.15 cm. Iliac arteries: Right common iliac artery measures 1.25 x 1.06 cm. Left common iliac artery measure s 1.23 x 0.95 cm. IMPRESSION: No abdominal aortic aneurysm. Reviewed by: Hermelindo Martinez MD on 08/10/2022 1:15 PM PST Approved by: Hermelindo Martinez MD on 08/10/2022 1:15 PM PST Station ID: [id number]
--- NOTE | 2022-08-10 13:50 | CT Report ---
PROCEDURE: Low Dose Lung Cancer Screen INDICATIONS: FORMER SMOKER TECHNIQUE: Noncontrast low-dose axial images were acquired from the pulmonary apices to the posterior costophren ic angles. Multiplanar MIP reformats were then reconstructed. For radiation dose reduction, the follo wing was used: automated exposure control, adjustment of mA and/or kV according to patient size. COMPARISON: None. FINDINGS: Image quality: Excellent. Lungs and pleura: No suspicious lung nodules or masses. A 4 mm posterior right upper lobe pleural-ba sed calcification is consistent with a granuloma. There are mild centrilobular emphysematous changes with an upper lobe predominance. No groundglass opacities, consolidations, or pleural effusions. Mediastinum: Heart size is normal. Scattered thin linear calcification of the slightly thickened per icardium. Mild to moderate coronary artery calcification. No pericardial effusion. No mediastinal a denopathy by size criteria. Thoracic aorta and central pulmonary arteries are normal in size. Esoph shaan is normal in caliber. No hiatal hernia. Bones and chest wall: No suspicious bony lesions. No vertebral body compression fractures. No axil kaycee or supraclavicular adenopathy by size criteria. The thyroid gland is not well seen due to techn ique. Abdomen: Visualized upper abdomen solid organs and bowel loops appear normal in the absence of contr ast. IMPRESSION: 1. No suspicious lung nodules. 2. Lung RADS category 1, continued annual low-dose chest CT screening. 3. Slightly thickened pericardium with scattered short linear calcifications. Reviewed by: Ml Sahnkar MD on 08/10/2022 1:49 PM PST Approved by: Ml Shankar MD on 08/10/2022 1:49 PM PST Station ID: [id number]
== END 2022-08-10 08:43 | disposition home or self-care (01) ==
LOC: DI 08:42
PROVIDERS: ATTEND Physician Assistant Medical
DX: Z12.2 Encounter for screening for malignant neoplasm of respiratory organs (principal); Z13.6 Encounter for screening for cardiovascular disorders; J43.9 Emphysema, unspecified; J98.4 Other disorders of lung; Z87.891 Personal history of nicotine dependence

== ENCOUNTER 2023-06-18 10:32 | Outpatient (CLI) | payer MEDICARE ==
[2023-06-18 14:35] LABS: BASOPHILS # (AUTO) 0.1 10^3/uL (0.0-0.1); BASOPHILS % (AUTO) 0.8 %; EOSINOPHILS # (AUTO) 0.2 10^3/uL (0.0-0.7); EOSINOPHILS % (AUTO) 3.2 %; HCT - HEMATOCRIT 42.5 % (42.0-52.0); HGB - HEMOGLOBIN 13.9 g/dL (14.0-18.0); LYMPHOCYTES # (AUTO) 1.4 10^3/uL (1.5-3.5); LYMPHOCYTES % (AUTO) 23.2 %; MEAN CORPUSCULAR HEMOGLOBIN 31.4 pg (27.0-31.0); MEAN CORPUSCULAR HGB CONC 32.7 g/dL (32.0-36.0); MEAN CORPUSCULAR VOLUME 95.9 fL (80.0-94.0); MEAN PLATELET VOLUME 10.1 fL (7.4-11.4); MONOCYTES # (AUTO) 0.7 10^3/uL (0.0-1.0); MONOCYTES % (AUTO) 11.2 %; NEUTROPHILS # (AUTO) 3.6 10^3/uL (1.5-6.6); NEUTROPHILS % (AUTO) 61.1 %; PLT - PLATELET COUNT 239 10^3/uL (130-450); RED BLOOD COUNT 4.43 10^6/uL (4.70-6.10); RED CELL DISTRIBUTION WIDTH 12.9 % (12.0-15.0)
[2023-06-18 15:23] LABS: ALBUMIN 4.5 g/dL (3.2-5.5); ALBUMIN/GLOBULIN RATIO 1.4 (1.0-2.2); ALKALINE PHOSPHATASE 62 IU/L (42-121); ALT ALANINE AMINOTRANSFERASE 54 IU/L (10-60); AST ASPARTATE AMINOTRANSFERASE 34 IU/L (10-42); BILIRUBIN,TOTAL 0.7 mg/dL (0.2-1.0); BUN - BLOOD UREA NITROGEN 19 mg/dL (6-20); CALCIUM 9.8 mg/dL (8.5-10.3); CARBON DIOXIDE - CO2 29 mmol/L (21-32); CHLORIDE 99 mmol/L (101-111); CHOL/HDL RATIO 3.3 (<5.0); CHOLESTEROL 223 mg/dL; CREATININE 1.1 mg/dL (0.6-1.3); GFR - MDRD 67 (>89); GLUCOSE 107 mg/dL (74-104); HDL CHOLESTEROL 68 mg/dL; LDL CHOLESTEROL,CALCULATED 125 mg/dL; LDL/HDL RATIO 1.8 (<3.6); SODIUM 133 mmol/L (135-145); TOTAL PROTEIN 7.7 g/dL (6.4-8.9); TRIGLYCERIDES 149 mg/dL (48-352); VLDL CHOLESTEROL 30 mg/dL
== END 2023-06-18 10:33 | disposition home or self-care (01) ==
LOC: LAB.S 10:32
PROVIDERS: ATTEND Physician Assistant Medical
DX: I10 Essential (primary) hypertension (principal); E78.5 Hyperlipidemia, unspecified; D64.9 Anemia, unspecified
CPT/HCPCS: 36415; 80053; 80061; 83721; 85025

== ENCOUNTER 2023-08-16 10:10 | Outpatient (CLI) | payer MEDICARE ==
[2023-08-20 17:08] LABS: GIARDIA LAMBLIA AG EIA Negative (Negative)
== END 2023-08-16 10:11 | disposition home or self-care (01) ==
LOC: LAB.S 10:10
PROVIDERS: ATTEND Emergency Medicine
DX: R19.7 Diarrhea, unspecified (principal)
CPT/HCPCS: 87045; 87046; 87177; 87209; 87329; 87427; 87493

== ENCOUNTER 2024-04-01 11:57 | Outpatient (CLI) | payer MEDICARE ==
--- NOTE | 2024-04-01 20:33 | XRAY Report ---
PROCEDURE: Lumbar Spine 2-3V INDICATIONS: LOW BACK PAIN TECHNIQUE: 2 views of the lumbar spine were acquired. COMPARISON: None. FINDINGS: Surgical change: None. Bones: 5 hrd-[id number]-[id number] vertebrae are present. There is normal bony alignment. No vertebral body co mpression fractures. No suspicious bony lesions. There are multilevel degenerative changes of the tenzin mbar spine with facet arthropathy and disc height loss with degenerative endplate changes and margina l spurring. Soft tissues: Overlying bowel gas pattern is normal. No suspicious soft tissue calcifications. Athe rosclerotic vascular calcifications. IMPRESSION: Multilevel degenerative changes of the lumbar spine. If indicated, consider MRI for further evaluatio n. Reviewed by: Tomas Sanchez MD on 04/01/2024 8:31 PM PDT Approved by: Tomas Sanchez MD on 04/01/2024 8:31 PM PDT Station ID: [id number]
== END 2024-04-01 11:58 | disposition home or self-care (01) ==
LOC: DI 11:57
PROVIDERS: ATTEND Physician Assistant Medical
DX: M47.816 Spondylosis without myelopathy or radiculopathy, lumbar region (principal)